=== PATIENT | female | born 1965 | race Caucasian/White ===

== ENCOUNTER 2018-04-19 10:10 | Emergency (ER) | payer OTHER ==
[~2018-04-19] VITALS: Ht 157.5 cm; Wt 113.6 kg
[~2018-04-19 10:10] MED LIST: LEVO112T2 PO; SINGULAR
[2018-04-19 10:29] VITALS: Ht 157.5 cm; Wt 113.6 kg
[2018-04-19] MEDS ORDERED: DIPHENHYDRAMINE 50 MG INJ IV STA (10:35)
[2018-04-19] MEDS ORDERED: METOCLOPRAMIDE 10 MG INJ IV STA (10:35)
[2018-04-19] MEDS ORDERED: ONDANSETRON 4 MG INJ IV STA (10:35)
--- NOTE | 2018-04-19 11:28 | ERD ---
ER Documentation Chief Complaint Chief Complaint PT BIBAnabell YEH OMEFOR DIZZNESS AND VOMIT X 1 DAY HPI 51-year-old female presents for evaluation of dizziness and vomiting, the dizziness was described as vertiginous. She denies chest pain or shortness of breath. She has not had any abdominal pain today, she does have a history of m igraines as well, no history of head trauma, no syncope. ROS All systems reviewed and are negative except as per history of present illness. Medications Home Meds Active Scripts Meclizine Hcl* (Antivert*) 12.5 Mg Tab, 12.5 MG PO Q6H PRN for DIZZINESS, #20 TAB Prov:SONI SAVAGE MD 04/19/18 Reported Medications [Singular] No Conflict Check 03/05/12 Levothyroxine Sodium* (Synthroid*) 112 Mcg Tablet, PO DAILY 03/05/12 Allergies Allergies: Coded Allergies: No Known Allergy (Unverified , 03/05/12) PMhx/Soc Hx Respiratory Disorders: Yes (ASTHMA) Hx Miscellaneous Medical Probl: Yes (THYROID, ANXIETY ) Hx Alcohol Use: No Hx Substance Use: No Hx Tobacco Use: No Smoking Status: Never smoker Physical Exam Vitals Vital Signs Date Temp Pulse Resp B/P (MAP) Pulse Ox O2 O2 Flow FiO2 Time Delivery Rate 04/19/18 81 17 115/76 100 Room Air 13:42 (89) 04/19/18 74 17 114/86 96 Room Air 11:00 (95) 04/19/18 98.6 74 17 119/84 100 10:29 (96) Physical Exam Const: No acute distress Head: Atraumatic Eyes: Normal Conjunctiva ENT: Normal External Ears, Nose and Mouth. Neck: Full range of motion. No meningismus. Resp: Clear to auscultation bilaterally Cardio: Regular rate and rhythm, no murmurs Abd: Soft, non tender, non distended. Normal bowel sounds Skin: No petechiae or rashes Back: No midline or flank tenderness Ext: No cyanosis, or edema Neur: Awake and alert, cranial nerves II through XII intact, no cerebellar ataxia. Psych: Normal Mood and Affect Result Diagram: 04/19/18 1108 04/19/18 1108 Results 24 hrs Laboratory Tests Test 04/19/18 11:08 White Blood Count 6.6 10^3/ul Red Blood Count 4.04 10^6/ul Hemoglobin 11.5 g/dl Hematocrit 35.6 % Mean Corpuscular Volume 88.1 fl Mean Corpuscular Hemoglobin 28.5 pg Mean Corpuscular Hemoglobin Concent 32.3 g/dl Red Cell Distribution Width 12.8 % Platelet Count 325 10^3/UL Mean Platelet Volume 10.1 fl Immature Granulocytes % 0.300 % Neutrophils % 58.7 % Lymphocytes % 30.2 % Monocytes % 6.9 % Eosinophils % 3.0 % Basophils % 0.9 % Nucleated Red Blood Cells % 0.0 /100WBC Immature Granulocytes # 0.020 10^3/ul Neutrophils # 3.9 10^3/ul Lymphocytes # 2.0 10^3/ul Monocytes # 0.5 10^3/ul Eosinophils # 0.2 10^3/ul Basophils # 0.1 10^3/ul Nucleated Red Blood Cells # 0.0 10^3/ul Sodium Level 140 mmol/L Potassium Level 4.1 mmol/L Chloride Level 104 mmol/L Carbon Dioxide Level 25 mmol/L Anion Gap 11 Blood Urea Nitrogen 11 mg/dl Creatinine 0.52 mg/dl Est Glomerular Filtrat Rate mL/min > 60 mL/min Glucose Level 132 mg/dl Calcium Level 10.1 mg/dl Total Bilirubin 0.7 mg/dl Direct Bilirubin 0.00 mg/dl Indirect Bilirubin 0.7 mg/dl Aspartate Amino Transf (AST/SGOT) 20 IU/L Alanine Aminotransferase (ALT/SGPT) 24 IU/L Alkaline Phosphatase 75 IU/L Troponin I < 0.012 ng/ml Total Protein 7.4 g/dl Albumin 4.3 g/dl Globulin 3.10 g/dl Albumin/Globulin Ratio 1.38 Lipase 112 U/L Current Medications Medications Dose Sig/Azul Start Time Status Last (Trade) Ordered Route PRN Stop Time Admin Dose Reason Admin 10 mg ONCE STAT 04/19/18 DC 04/19/18 Metoclopramid IV 10:35 11:00 e HCl 04/19/18 10:38 (Reglan) Ondansetron 4 mg ONCE STAT 04/19/18 DC 04/19/18 HCl (Zofran IV 10:35 10:59 Inj) 04/19/18 10:38 12.5 mg ONCE STAT 04/19/18 DC 04/19/18 Diphenhydrami IV 10:35 10:59 ne HCl 04/19/18 10:38 (Benadryl) Procedures/MDM This is a 52-year-old female presents for evaluation of vertiginous dizziness, her lab workup was overall unremarkable, [place] for anginal equivalent, this was negative. Her symptoms significantly improved, she had no neurologic deficits, at this point I do not suspect a central cause for her vertigo, as she has no neurologic deficits, and her symptoms appear to have been movement triggered. Strict return precautions given particularly for any neurologic deficits, or any acute changes in her symptoms, or any other concerns. At discharge patient was in no acute distress. EKG: Rate/Rhythm: Normal Sinus Rhythm QRS, ST, T-waves: No changes consistent w/ acute ischemia Impression: No evidence of ischemia or arrhythmia Departure Diagnosis: Primary Impression: Dizziness Condition: Stable SONI SAVAGE MD Apr 19, 2018 11:28
[2018-04-19] MEDS ORDERED: MECL12.574 PO (13:16)
[2018-04-19 13:42] VITALS: BP 115/76; PULSE 81; RESP 17
== END 2018-04-19 13:42 | disposition home or self-care (01) ==
LOC: E/R 10:10
DX: R42 Dizziness and giddiness (principal); J45.909 Unspecified asthma, uncomplicated
CPT/HCPCS: 80053; 83690; 84484; 85025; 93005; 96374; 96375; J1200; J2405; J2765; Z7502

== ENCOUNTER 2018-09-23 09:47 | Emergency (ER) | payer OTHER ==
[~2018-09-23] VITALS: Ht 160 cm; Wt 113.6 kg
[~2018-09-23 09:47] MED LIST changes: +MECL12.574 PO
[2018-09-23 09:51] VITALS: RESP 16; Ht 160 cm; Wt 113.6 kg
[2018-09-23] MEDS ORDERED: ASPIRIN 81 MG TAB PO STA (10:25)
[2018-09-23] MEDS ORDERED: hydrOXYzine PAMOATE 25 MG CAP PO ONE (10:30)
[2018-09-23 10:58] VITALS: BP 137/83; PULSE 99
[2018-09-23] MEDS ORDERED: HYDR25CA PO (12:33)
--- NOTE | 2018-09-23 12:36 | ERD ---
ER Documentation Chief Complaint Chief Complaint nasueablood pressure high on home machine, arm tingling HPI This is a 53-year-old woman who presents emergency room via ambulance with complaint of pressure in the back of her head, throat pressure, high reading of blood pressure at home which patient states was over 200 systolic. Patient also complains of left arm numbness and pain that radiates into left arm and left neck. Patient states she feels like she cannot breathe and her throat is closing. Patient's family states patient has had multiple emergency visits for same complaint with complete work-up that has been negative. Patient is being treated by psychiatrist for anxiety however patient is not taking her lorazepam as she says it makes her anxious. Patient alert at time of examination tossing and turning around on gurney unable to sit still as she says she has pressure in the back of her head. Clear speech, no pronator drift, equal smile, no numbness or weakness. ROS All systems reviewed and are negative except as per history of present illness. Medications Home Meds Active Scripts Hydroxyzine Pamoate* (Vistaril*) 25 Mg Capsule, 25 MG PO TID PRN for ANXIETY for 10 Days, #30 CAP Prov:SEVEN FREY NP 09/23/18 Meclizine Hcl* (Antivert*) 12.5 Mg Tab, 12.5 MG PO Q6H PRN for DIZZINESS, #20 TAB Prov:SONI SAVAGE MD 04/19/18 Reported Medications [Singular] No Conflict Check 03/05/12 Levothyroxine Sodium* (Synthroid*) 112 Mcg Tablet, PO DAILY 03/05/12 Allergies Allergies: Coded Allergies: No Known Allergy (Unverified , 03/05/12) PMhx/Soc Hx Respiratory Disorders: Yes (ASTHMA) Hx Miscellaneous Medical Probl: Yes (THYROID, ANXIETY ) Hx Alcohol Use: No Hx Substance Use: No Hx Tobacco Use: No Smoking Status: Never smoker FmHx Family History: No diabetes, No coronary disease, No other Physical Exam Vitals Vital Signs Date Temp Pulse Resp B/P (MAP) Pulse Ox O2 O2 Flow FiO2 Time Delivery Rate 09/23/18 99 137/83 98 Room Air 10:58 (101) 09/23/18 98.7 109 16 151/80 100 09:51 (103) Physical Exam Const: Mild acute distress Head: No bruising, no swelling, no hematoma, no crepitus Eyes: Normal Conjunctiva. PERRL, EOMI ENT: Normal External Ears, Nose and Mouth. Pharynx pink, moist, no oral injury. Neck: Full range of motion. No meningismus. No cervical spinal tenderness. No lymphadenopathy, No thyromegaly. No JVD. Resp: Clear to auscultation bilaterally, no rales, rhonchi. Chest rise equal bilaterally. Cardio: Regular rate and rhythm, no murmurs Abd: Soft, non tender, non distended. Normal bowel sounds. Skin: No petechiae or rashes, no abrasions, no hematomas. Back: No midline or flank tenderness, no point tenderness to spine, FROM, no CVT Ext: No cyanosis, or edema, no deformities Neur: Awake and alert, CN II-XII intact, steady gait, clear speech, no pronator drift, equal smile, BL in store marketer 5/5, sensation intact BL, negative Romberg, negative [id number] test. Psych: Anxious Mood and Affect Result Diagram: 09/23/18 1054 09/23/18 1054 Results 24 hrs Laboratory Tests Test 09/23/18 10:54 White Blood Count 6.7 10^3/ul Red Blood Count 4.31 10^6/ul Hemoglobin 12.2 g/dl Hematocrit 38.1 % Mean Corpuscular Volume 88.4 fl Mean Corpuscular Hemoglobin 28.3 pg Mean Corpuscular Hemoglobin Concent 32.0 g/dl Red Cell Distribution Width 12.8 % Platelet Count 367 10^3/UL Mean Platelet Volume 9.5 fl Immature Granulocytes % 0.500 % Neutrophils % 66.6 % Lymphocytes % 21.6 % Monocytes % 7.8 % Eosinophils % 2.0 % Basophils % 1.5 % Nucleated Red Blood Cells % 0.0 /100WBC Immature Granulocytes # 0.030 10^3/ul Neutrophils # 4.4 10^3/ul Lymphocytes # 1.4 10^3/ul Monocytes # 0.5 10^3/ul Eosinophils # 0.1 10^3/ul Basophils # 0.1 10^3/ul Nucleated Red Blood Cells # 0.0 10^3/ul Urine Color STRAW Urine Clarity CLEAR Urine pH 7.0 Urine Specific [place] 1.002 Urine Ketones NEGATIVE mg/dL Urine Nitrite NEGATIVE mg/dL Urine Bilirubin NEGATIVE mg/dL Urine Urobilinogen NEGATIVE mg/dL Urine Leukocyte Esterase NEGATIVE [place]/ul Urine Microscopic RBC 1 /HPF Urine Microscopic WBC 0 /HPF Urine Hemoglobin 3+ mg/dL Urine Glucose NEGATIVE mg/dL Urine Total Protein NEGATIVE mg/dl Sodium Level 145 mmol/L Potassium Level 4.1 mmol/L Chloride Level 108 mmol/L Carbon Dioxide Level 25 mmol/L Anion Gap 12 Blood Urea Nitrogen 11 mg/dl Creatinine 0.66 mg/dl Est Glomerular Filtrat Rate mL/min > 60 mL/min Glucose Level 131 mg/dl Calcium Level 9.7 mg/dl Troponin I < 0.012 ng/ml Current Medications Medications Dose Sig/Azul Start Time Status Last (Trade) Ordered Route PRN Stop Time Admin Dose Reason Admin Aspirin 162 mg ONCE STAT 09/23/18 DC 09/23/18 (Aspirin) PO 10:25 11:11 09/23/18 10:50 Hydroxyzine 25 mg ONCE ONCE 09/23/18 DC 09/23/18 Pamoate PO 10:30 11:11 (Vistaril) 09/23/18 10:50 Procedures/MDM PROCEDURES/MDM EKG: Read by Dr. Vogel, attending physician. EKG shows normal sinus rhythm at a rate of 72 bpm. No arrhythmias, acute ST elevations or T wave changes were noted. DIAGNOSTIC IMAGING: Read by radiologist. IMPRESSION: 1. No evidence of acute cardiopulmonary process. 2. Aortic atherosclerosis. LAB INTERPRETATION: No leukocytosis, no Anemia no electrolyte disturbance, no nephropathy, no hyperglycemia, negative troponin, urine negative for UTI. -Medications: Vistaril, ASA Patient tolerated medication well with no adverse reactions. Patient reported improvement in pain. MDM: Is a 53-year-old female patient who presents to the emergency room with multiple complaints including left arm pain and numbness, throat tightness, head pain, hypertension at home. Patient was evaluated for cardiopulmonary etiology and treated with Vistaril for her reported anxiety. The patient is clinically well appearing and stable. Symptoms are not suggestive of cardiac ischemia, pulmonary embolus, aortic dissection, or other serious etiology. These diagnoses have been considered and excluded clinically and with additional diagnostic studies as indicated. (HEART score 1, Wells Score 0). Nonetheless, it is understood by both the patient and provider that no clinical or diagnostic assessment can entirely exclude such diseases. Chest pain precautions have been given and the patient has been advised to return for worsening symptoms or any concerns. Reevaluation of blood pressure shows reduction of blood pressure during ED course. Long discussion had with patient and family regarding connection between stress, pain, and blood pressure. Patient has been prescribed blood pressure medication but only takes it when she feels like it is high. Patient and family instructed to follow-up with patient's primary care provider this week for evaluation of lab work, ecg, and instruction on blood pressure and other medications. The patient's anxiety was treated in the ER with Vistaril. She reports decrease in head pain, throat discomfort, and arm numbness. Instructed patient and family on the importance of expedited referral to psych. Patient states her primary care doctor has prescribed her Zoloft and has been instructed to increase her dosage to 75 mg/day but she did not do that. Patient states she will start taking her 75 mg tablet today. Instructed patient on stress reduction techniques and improving self-care. Instructed patient to return immediately to the emergency room or call 911 with any thoughts of harming herself or anyone else. Patient was written prescription for Vistaril with instructions on use and need for close follow-up with primary care physician and discussion of use of this medication. DISPOSITION and PLAN: RX: Vistaril The patient has been discharge home to follow-up with community physician. Departure Diagnosis: Primary Impression: Anxiety disorder Anxiety disorder type: generalized anxiety disorder Qualified Codes: F41.1 - Generalized anxiety disorder Additional Impression: Left arm pain Condition: Stable Patient Instructions: Understanding Anxiety Disorders Referrals: [facility] YOU HAVE RECEIVED A MEDICAL SCREENING EXAM AND THE RESULTS INDICATE THAT YOU DO NOT HAVE A CONDITION THAT REQUIRES URGENT TREATMENT IN THE EMERGENCY DEPARTMENT. FURTHER EVALUATION AND TREATMENT OF YOUR CONDITION CAN WAIT UNTIL YOU ARE SEEN IN YOUR DOCTORS OFFICE WITHIN THE NEXT 1-2 DAYS. IT IS YOUR RESPONSIBILITY TO MAKE AN APPOINTMENT FOR [facility]. IF YOU HAVE A PRIMARY DOCTOR --you should call your primary doctor and schedule an appointment IF YOU DO NOT HAVE A PRIMARY DOCTOR YOU CAN CALL OUR PHYSICIAN REFERRAL HOTLINE AT IF YOU CAN NOT AFFORD TO SEE A PHYSICIAN YOU CAN CHOSE FROM THE FOLLOWING [facility] [address] [facility]. [facility] [address] [facility] [address] [facility] [address] [facility] [address] [facility] [address] [facility]. [facility]. [address] [facility]. [facility] YOU HAVE RECEIVED A MEDICAL SCREENING EXAM AND THE RESULTS INDICATE THAT YOU DO NOT HAVE A CONDITION THAT REQUIRES URGENT TREATMENT IN THE EMERGENCY DEPARTMENT. FURTHER EVALUATION AND TREATMENT OF YOUR CONDITION CAN WAIT UNTIL YOU ARE SEEN IN YOUR DOCTORS OFFICE WITHIN THE NEXT 1-2 DAYS. IT IS YOUR RESPONSIBILITY TO MAKE AN APPOINTMENT FOR FOLOW-UP CARE. IF YOU HAVE A PRIMARY DOCTOR --you should call your primary doctor and schedule and appointment IF YOU DO NOT HAVE A PRIMARY DOCTOR YOU CAN CALL OUR PHYSICIAN REFERRAL HOTLINE AT . IF YOU CAN NOT AFFORD TO SEE A PHYSICIAN YOU CAN CHOSE FROM THE FOLLOWING [facility] INSTITUTIONS: [facility] [address] [place] [address] [facility] [address] [place] [address] [facility] [address] [place] [address] Additional Instructions: Thank you very much for allowing us to participate in your care. Your health and safety is our top priority at [facility]. Call your primary care doctor TOMORROW for an appointment during the next 2-4 days and bring all the information and medications prescribed. Have prescriptions filled and follow precisely the directions on the label. If the symptoms get worse and your provider is unavailable, return to the Emergency Department immediately. FOLLOW-UP WITH YOUR PRIMARY CARE PHYSICIAN WITHIN THE NEXT 2 TO 4 DAYS FOR REEVALUATION AND DISCUSSION OF LAB RESULTS AND PLAN OF CARE TAKE VISTARIL NEEDED FOR ANXIETY OR SLEEP RETURN TO THE EMERGENCY ROOM FOR CHEST PAIN, SHORTNESS OF BREATH, WORSENING OF SYMPTOMS Take Vistaril at night to help with sleep. Do not take while operating the vehicle, do not take with alcohol. This medication may make you drowsy. SEVEN FREY NP Sep 23, 2018 12:36
== END 2018-09-23 12:46 | disposition home or self-care (01) ==
LOC: FTE 09:47
DX: F41.1 Generalized anxiety disorder (principal); J45.909 Unspecified asthma, uncomplicated; M79.602 Pain in left arm
CPT/HCPCS: 36415; 71045; 80048; 81001; 84484; 85025; 93005; Z7502; Z7610